=== PATIENT | female | born 1970 | race Caucasian/White ===

== ENCOUNTER 2018-09-21 14:40 | Outpatient (REF) | payer BC, SELFPAY ==
[2018-09-21 21:47] LABS: Cholesterol 185 mg/dL (50-200); HDL Cholesterol 61 mg/dL (40-60); LDL CHOLESTEROL 102 mg/dL (<100); Triglyceride 141 mg/dL (30-150)
== END 2018-09-21 15:00 ==
LOC: NCHCN 14:40
PROVIDERS: PCP Nurse Practitioner Family; Visit Provider Registered Nurse
DX: Z00.00 Encounter for general adult medical examination without abnormal findings (principal); Z13.220 Encounter for screening for lipoid disorders
CPT/HCPCS: 80061; 83721

== ENCOUNTER 2021-03-12 01:32 | Outpatient (CLI) | payer BC, SELFPAY ==
--- NOTE | 2021-03-12 | DI.MAMMO_ITS ---
Exam(s) MAMMO SCREENING EXAM: MAMMO SCREENING CLINICAL HISTORY: SCREENING,Z12.31,YEARLY. TECHNIQUE: Bilateral full field digital CC and MLO mammographic images were obtained with 3D tomosyn thesis and utilizing computer aided detection (CAD). COMPARISON: Prior mammograms performed in 2012. There been no interval mammograms. FINDINGS: The fibroglandular tissue pattern is moderately dense, this decreasing the sensitivity mammogram for finding hidden underlying lesions. There are no new spiculated masses nor malignant appearing microcalcification groups. There is no significant architectural distortion nor skin thickening-retraction. IMPRESSION: Dense bilateral fibroglandular tissue. No obvious radiographic evidence of malignancy nor significan t change compared to 2012 BI-RADS Category 1 - Negative Breast Density - Category C - Heterogeneously dense Breast density Category C or D implies that the patient has dense breast tissue. Dense breast tissue can make it harder to find cancer on a mammogram. Dense breast tissue is also associated with an incr eased risk of breast cancer. This information about the result of the mammogram report was provided to the patient to raise their awareness. Use this report when you speak with the patient about their risks for breast cancer, which includes their family history. At that time, you may recommend additional screening tests (Ultrasoun d or MRI) as these tests may add significant information. A negative radiographic report should not delay biopsy if a dominant or clinically suspicious mass is present. Up to ten percent of cancers are not identified on mammography. A negative report may reinforce clinical impression. Adenosis and dense breasts may obscure an underlying neoplasm. False positive reports average 6 to 10%. Patient will receive a letter notifying them of these results.
== END 2021-03-12 01:52 ==
PROVIDERS: PCP Nurse Practitioner Family; Visit Provider Registered Nurse
DX: Z12.31 Encounter for screening mammogram for malignant neoplasm of breast (principal)
CPT/HCPCS: 77063; 77067

== ENCOUNTER 2021-04-30 12:29 | Outpatient (REF) | payer BC, SELFPAY ==
--- NOTE | 2021-04-30 10:45 | PAPFT_PTH ---
PATIENT: Nicky Westfall LOC: [facility]#:[id number] AGE/SX: 50/F ROOM: RE04/30/[address]: Charity Chew : 1970 BED: DIS: 04/30/2021 SPEC #: [id number] RECD: 05/01/21 13:09 STATUS: MSITA GIL #: [id number] CORNELIUS: 04/30/21 10:[address]: Charity Chew DEPT: [facility] Cytology RECD BY: Daria Springer ENTERED: 05/01/21 13:09 SP TYPE: PAPFT OTHR DR: Jennfier Jerez Tissues: 1 - CX/ENDOCX FOR PAP SMEARS Procedures: PAP THIN PREP/UVM Screening HPV DNA PROBE Comments: [id number]
[2021-05-01 22:21] LABS: Calculated LDL 112 mg/dL (<100); Cholesterol 205 mg/dL (<200); HDL Cholesterol 65 mg/dL (40-60); Triglyceride 144 mg/dL (<150)
[2021-05-04 10:23] LABS: Hepatitis C Ab w Rflx HCV PCR Negative (Negative)
[2021-05-04 12:13] LABS: Lyme Ab w Rflx to Lyme Confirm Negative (Negative)
[2021-05-04 16:33] LABS: Spotted Fever Group Ab IgG <1:64 (<1:64); Spotted Fever Group Ab IgM <1:64 (<1:64)
[2021-05-04 19:11] LABS: Anaplasma phagocytophilum Negative (Negative); B. miyamotoi PCR Negative (Negative); Babesia divergens/MO-1 Negative (Negative); Babesia duncani Negative (Negative); Babesia microti Negative (Negative); Ehrlichia chaffeensis Negative (Negative); Ehrlichia ewingii/canis Negative (Negative); Ehrlichia muris eauclairensis Negative (Negative)
== END 2021-04-30 12:30 | disposition home or self-care (01) ==
LOC: NCHCN 12:29
PROVIDERS: PCP Nurse Practitioner Family; Visit Provider Registered Nurse
DX: Z00.00 Encounter for general adult medical examination without abnormal findings (principal); Z12.4 Encounter for screening for malignant neoplasm of cervix; Z11.51 Encounter for screening for human papillomavirus (HPV); Z13.220 Encounter for screening for lipoid disorders; W57.XXXA Bitten or stung by nonvenomous insect and other nonvenomous arthropods, initial encounter; T14.8XXA Other injury of unspecified body region, initial encounter; Z11.59 Encounter for screening for other viral diseases
CPT/HCPCS: 80061; 86803; 87798; 88142; 86618; 86757; 87624

== ENCOUNTER 2021-08-05 02:05 | Outpatient (CLI) | payer BC, SELFPAY ==
[2021-08-05 10:22] LABS: Source Nasal/Nares
[2021-08-05 13:53] LABS: COVID-19 PCR Negative (Negative)
== END 2021-08-05 02:06 | disposition home or self-care (01) ==
LOC: LBO 02:05
PROVIDERS: PCP Registered Nurse; Visit Provider Surgery
DX: Z20.822 Contact with and (suspected) exposure to COVID-19 (principal); Z01.818 Encounter for other preprocedural examination
CPT/HCPCS: 87635

== ENCOUNTER 2021-08-07 12:55 | Day surgery (SDC) | payer BC, SELFPAY ==
--- NOTE | 2021-08-06 15:56 | W.COLOREPORT ---
Colonoscopy Report Date of procedure: 08/07/21 Pre-op diagnosis general: CRC screen Post-op diagnosis procedure note: other (polyps and severe diverticular dx) Surgeon: Doris Kirk Anesthesia Type: General:No Airway Estimated blood loss (mL): 1 Pathology: other Complications: None Disposition: same day Prep: Miralax/Dulcolax Retraction Time: 10 mins Procedure Description: After informed consent was obtained the patient was taken to the procedure room and placed in a left decubitous position. Monitors were applied and a time out was done. The patients name, date of , procedure, allergies to medications and metal in their body was reviewed. The patient was then sedated. Once sedated and comfortable a rectal exam was done. External exam was normal. Internal exam revealed a normal sphincter tone and no palpable masses. The scope was then introduced and retrofelexed. No internal hemorrhoids were identified. The scope was then advanced to the cecum w/out difficulty. The TI and appendiceal orifice were identified. The prep was adequate. She does have stool coating the hampton of the right colon. This is extensively lavaged with 2 L of fluid. However lesions less than 5 mm may have been missed.. The scope was then slowly retracted over 10 minutes back into the rectum. Polyps were removed at 30cm w/ a hot snare. All specimens are retrieved and no bleeding is noted. she has severe diverticular disease confined to the sigmoid colon. She has a significant number of large pockets. There is no signs of active bleeding or infection. The colon is very tortuous and has poor tone. Upon completion, the scope was removed and the patient was woken up and taken back to Same day surgery in stable condition. The patient tolerated the procedure well and there were no immediate complications. Follow up: The patient should follow up in 3-5 years, path pd; unless they develop changes in bowel habits or other new gastrointestinal complaints.
--- NOTE | 2021-08-06 15:57 | PDOC.DSDIS_ITS ---
Discharge Plan Disposition Patient Disposition: HOME Condition: Good Discharge Details Reason For Visit: colo scope Attending Provider: Doris Kirk Primary Care Provider: Charity Chew Discharge Instructions Additional Instructions: DSU Colonoscopy Post- Op Instructions Instructions for Everyone who is given Anesthesia: For your safety, please do the following for the next twenty-four (24) hours: *Do Not operate a motor vehicle (car, truck, motorcycle, etc.) *Do Not drink alcoholic beverages or use any recreational drugs for the first 24 hours or while taking pain medications. The medications in your body may have a reaction that can be dangerous. *Do Not make any important decisions or sign any important papers. Findings: severe diverticular Dx polyp -use fiber supplement BID Follow up: repeat colonscopy in 3-5 yrs. 1. No lifting over 20 pounds or strenuous activity for the first 24 hours after your procedure. After 24 hours there are no restrictions on your activity but you may feel fatigued for a few days. 2. After you arrive home you may have a light meal and return to your normal diet as you can tolerate it without feeling sick to your stomach. 3. You may have a bloated, gaseous feeling in your belly (abdomen) after a colonoscopy. Passing gas and belching will help. Walking or lying down on your left side with your knees flexed may relieve the discomfort. Call the office at [phone] (Office) or [phone] (Hospital) right away if you notice any of the following: a.Vomiting of blood or ?coffee ground stools?. b.Rectal bleeding 1Tbsp, blood clots or continuous bleeding. c.Severe belly (abdominal) pain. d.A hard distended belly (abdomen) and an inability to pass gas. 4. Please don?t expect to have a normal BM (bowel movement) for 2-3 days after your procedure. 5. If there are questions regarding the findings of your procedure, please contact your doctor 6. If you are unable to contact your doctor with a problem, contact the hospital at [phone]. 7. Continue all your regular medications unless directed otherwise. I understand the above instructions and have no questions. Signature of Patient or Adult Escort Name of Responsible Adult Escort Signature of Nurse Date/Time Activity:: see above Diet:: see above Discharge Orders Discharge Orders: Discharge Order (Routine); Ordered 08/06/21 Ordered By: Doris Kirk DS: Diagnosis Discharge Diagnosis (1) Diverticula of colon: Status: Acute (2) Adenomatous polyp of sigmoid colon: Status: Acute (3) Chronic constipation: Status: Acute
[2021-08-07 13:18] VITALS: BP 142/78; PULSE 71; RESP 16; TEMP 36; O2SAT 16
--- NOTE | 2021-08-07 13:26 | W.ANESPRE ---
General Info Date of Service Date Performed: 08/07/21 Height: 5 ft 2 in Weight: 61.7 kg Body Mass Index (BMI): 24.8 Surgical Procedure: Operation Date: 08/07/21 13:05 Proposed Procedures Side Surgeon maxwell Kirk, DO Meds Allergies and Home Medications Allergies Allergy/AdvReac Type Severity Reaction Status Date / Time No Known Allergies Allergy Verified 08/07/21 13:16 Current Visit Medications: Current Medications Generic Name Dose Route Start Last Admin Trade Name Freq PRN Reason Stop Dose Admin Hyoscyamine Sulfate 0.125 mg 08/06/21 15:55 Hyoscyamine 0.125 Mg Sl/Oral/Chew SL DIRECTED PRN Ringer's Solution 1,000 mls @ 80 mls/hr 08/07/21 06:00 IV 09/05/21 23:59 INFUSION NATACHA IV Miscellaneous Supplies 1 each 08/07/21 06:00 Iv Access IV 09/05/21 23:59 DIRECTED NATACHA Ondansetron HCl 4 mg 08/06/21 15:55 Ondansetron 4 Mg/2 Ml Vial IVP Q4H PRN PRN Nausea / Vomiting Sodium Chloride 0 ml 08/07/21 06:00 Normal Saline Flush 10 Ml Syr IV 09/05/21 23:59 PRN PRN Sodium Chloride 0 ml 08/07/21 06:00 Normal Saline 10 Ml Vial IJ 09/05/21 23:59 DIRECTED PRN Sterile Water 0 ml 08/07/21 06:00 Water,Injection,Sterile 10 Ml Vial IJ 09/05/21 23:59 DIRECTED PRN PFSH Active Problems Active Problems: Problem Status Onset Code Screening for colon cancer Z12.11 Medical History Medical History Dysmenorrhea Skin lesion Tobacco Smoking/Tobacco Use Status: Former Tobacco Use Alcohol Alcohol Intake: current Alcohol intake frequency: a few times a week Alcohol type: beer and wine Substance Use Substance use type: does not use Vital Signs and Lab Results Vital Signs Most Recent Vital Signs in EMR: Most Recent Vital Signs Temp Pulse Resp BP Pulse Ox 36.0 C L 71 16 142/78 H 16 L 08/07/21 13:18 08/07/21 13:18 08/07/21 13:18 08/07/21 13:18 08/07/21 13:18 Lab Results Blood Type / Crossmatch: No Data to Display Complete Blood Count: No Data to Display Complete Metabolic Panel: No Data to Display Liver Function Panel: No Data to Display Coagulation Panel: No Data to Display Cardiac Panel: No Data to Display Arterial Blood Gas: No Data to Display Venous Blood Gas: No Data to Display Pancreas Panel: No Data to Display Thyroid Panel: No Data to Display Infectious Disease: Coronavirus (COVID-19)(PCR) Negative (Negative) 08/05/21 08:42 08/05/21 Coronavirus 2019 Source Nasal/Nares 08/05/21 08:42 08/05/21 Blood Cultures: No Data to Display Toxicology Panel: No Data to Display Panel: No Data to Display Anesthesia Assessment and Plan Anesthesia History Personal History: No History of General Anesthesia Family History: No Family History of Anesthesia Complications Exercise Tolerance Exercise Tolerance: Metabolic Equivalents>4 Pertinent Negatives Pertinent Negatives: No Symptoms of GERD, No Major Cardiovascular Symptoms or Complaints, No Major Pulmonary Symptoms or Complaints and No History of CVA/TIA Cardiac & Pulmonary Exam Cardiac Exam: Normal S1/S2 Heart Sounds Pulmonary Exam: Clear Bilateral Breath Sounds Airway Exam Known Difficult Airway: No Mallampati Class: 2 Mouth Opening: Normal (> 3cm) Thyromental Distance: Greater than 3 cm Neck Range of Motion: Full ROM Neck Circumference: Normal Teeth Condition: Normal Dentition ASA Classification ASA Score: ASA 2 Emergency Case?: No NPO Status NPO Status: NPO Clears >2 hours, Solids >8 hours Status Status: Not Relevant due to Medical History Anesthesia Plan Resuscitation Status: Full Code Anesthesia Technique: General Anesthesia Airway Planned: Natural Airway Monitors Used: Standard Monitors
[2021-08-07 13:28] VITALS: BMI 24.8
[2021-08-07] MEDS: Lactated Ringers 1,000 ML 80 ML IV (13:33)
--- NOTE | 2021-08-07 14:11 | BOWEL_PTH ---
PATIENT: Nicky Westfall LOC: [facility] U#:[id number] AGE/SX: 50/F ROOM: RE08/07/[address]: Doris Kirk : 1970 BED: DIS: 08/07/2021 SPEC #: [id number] RECD: 08/07/21 16:38 STATUS: SMITA REQ #: [id number] CORNELIUS: 08/07/21 14:[address]: Doris Kirk DEPT: Surgical Specimen RECD BY: Daria Springer ENTERED: 08/07/21 16:39 SP TYPE: Bowel OTHR DR: Charity Chew Tissues: 1 - BIOPSY BOWEL Procedures: GROSS AND MICRO LEVEL 4 Comments: [id number]
[2021-08-07 14:20] VITALS: BP 124/71; PULSE 64; RESP 16; TEMP 36.7; O2SAT 100
--- NOTE | 2021-08-07 14:35 | W.ANESPOSTOP ---
Postoperative Evaluation Date, Time and Location Date Performed: 08/07/21 Time Performed: 14:28 Patient Location: Day Surgery Unit Vital Signs Most Recent Imported Vital Signs: Most Recent Vital Signs Temp Pulse Resp BP Pulse Ox 36.7 C 64 16 124/71 100 08/07/21 14:20 08/07/21 14:20 08/07/21 14:20 08/07/21 14:20 08/07/21 14:20 Pain Score Most Recent Pain Score: Most Recent Pain Score Pain Level 0 08/07/21 14:20 Assessment Mental Status: Awake (Alert & Oriented to Patient Baseline) Airway and Respiratory Function: Patent airway with normal (patient baseline) respiratory exam Cardiovascular Function: Hemodynamically Stable Hydration Status: Adequately Hydrated Nausea & Vomiting: No Nausea or Vomiting Pain: Pt. Denies Any Pain Peripheral Nerve Block: Patient did not receive a nerve block
[2021-08-07 14:49] VITALS: BP 114/82; PULSE 68; RESP 16; TEMP 36.3; O2SAT 99
== END 2021-08-07 15:30 | disposition home or self-care (01) ==
PROVIDERS: PCP Registered Nurse; Visit Provider Surgery
PROC: 0DJD8ZZ Inspection of Lower Intestinal Tract, Via Natural or Artificial Opening Endoscopic (ICD-10-PCS; CPT 45378; principal; 2021-08-07 13:00)
DX: Z12.11 Encounter for screening for malignant neoplasm of colon (principal); K59.09 Other constipation; K57.30 Diverticulosis of large intestine without perforation or abscess without bleeding; D12.5 Benign neoplasm of sigmoid colon
CPT/HCPCS: 45385; 88305; J2001; J2405

== ENCOUNTER 2022-02-10 19:31 | Outpatient (REF) | payer BC, SELFPAY ==
[2022-02-11 15:11] LABS: COVID-19 RT-PCR UVMMC Result Negative (Negative)
== END 2022-02-10 19:32 | disposition home or self-care (01) ==
LOC: NCHCN 19:31
PROVIDERS: PCP Registered Nurse; Visit Provider Nurse Practitioner Family
DX: J02.9 Acute pharyngitis, unspecified (principal); Z20.822 Contact with and (suspected) exposure to COVID-19
CPT/HCPCS: U0003

== ENCOUNTER 2022-11-01 10:44 | Outpatient (REF) | payer BC, SELFPAY | END 2022-11-01 10:45 | disposition home or self-care (01) | LOC: NCHCN 10:44 | PROVIDERS: PCP Registered Nurse; Visit Provider Nurse Practitioner Family | DX: R30.0 Dysuria (principal) | CPT/HCPCS: 87077; 87086; 87186 ==

== ENCOUNTER 2024-07-02 19:34 | Outpatient (REF) | payer BC, SELFPAY ==
[2024-07-02 15:48] LABS: HCT 39.3 % (36.0-46.0); HGB 13.4 g/dL (11.2-15.7); MCH 31.3 pg (27.0-33.0); MCHC 34.1 % (32.0-36.0); MCV 92 fL (80-95); MPV 11.2 fL (8.0-11.0); Platelet Count 243 10^3/uL (130-400); RBC 4.28 10^6/uL (3.93-5.22); RDW-SD 40.8 fL; WBC 6.84 10^3/uL (4.4-10.8)
[2024-07-02 16:14] LABS: ALT 32 U/L (14-59); AST 26 U/L (15-37); Albumin 4.1 g/dL (3.4-5.0); Alkaline Phosphatase 67 U/L (46-116); Anion Gap 9.1 mmol/L (3-11); BUN 16 mg/dL (7-18); Bilirubin, Total 0.45 mg/dL (0.2-1.0); CO2 27.9 mmol/L (21.0-32.0); CREATININE 0.7 mg/dL (0.55-1.02); Calcium 9.3 mg/dL (8.5-10.1); Calculated LDL 116 mg/dL (<100); Chloride 103 mmol/L (98-107); Cholesterol 214 mg/dL (<200); Estimated GFR 102.07 (mL/min/1.73m2); Glucose 92 mg/dL (74-106); HDL Cholesterol 77 mg/dL (40-60); Potassium 4.2 mmol/L (3.5-5.1); Sodium 140 mmol/L (136-145); TSH (W/Ref FT4) 1.57 uIU/mL (0.36-3.74); Total Protein 7.4 g/dL (6.4-8.2); Triglyceride 105 mg/dL (<150)
--- OUTSIDE RECORDS SUMMARY | 2024-07-02 19:42 | XMS_ITS ---
Author Organization Unknown Address [address] [place] [address] [phone] Phone Care Team Providers Care Groundwater Consultant Name Role Phone PETER Garza Attending Unavailable MUSTAPHA Cordova Primary Unavailable Social History Type Status Start Date End Date Code Code Syst em Smoking History Unknown if ever smoked [id number] Sex Female Hospital Discharge Instructions Should you have any questions prior to discharge, please contact a member of your healthcare team. If you have left the hospital and have any questions, please contact your primary care physician. Reason For Referral No Data Found Allergies and Adverse Reactions Allergy Substance Reaction Severity Start Date Concern Status Co de Code System No Known Drug Allergies Active [id number] SNOMED-CT Plan of Treatment TRAVEL 08/12/2021 Encounters Encounter Diagnosis Start Date Code Code Sys tem Radial styloid tenosynovitis 10/03/2023 71342192 SNOMED-CT Personal Care Team Section Performer Name Performer Role Active Date Inactive Da te
--- OUTSIDE RECORDS SUMMARY | 2024-07-02 19:42 | XMS_ITS ---
Author Organization Unknown Address [address] [place] [address] [phone] Phone Care Team Providers Care Manager Community Relations Name Role Phone SHOBHA Cobian Attending Unavailable MUSTAPHA Cordova Primary Unavailable Social History Type Status Start Date End Date Code Code Syst em Smoking History Unknown if ever smoked [address] Sex Female Hospital Discharge Instructions [...] Code System No Known Drug Allergies Active [id number] SNOMED-CT Plan of Treatment TRAVEL 08/12/2021 Encounters Encounter Diagnosis Start Date Code Code Sys tem Tenosynovitis of right radial styloid 09/05/2023 160 [id number] SNOMED-CT Personal Care Team Section Performer Name Performer Role Active Date Inactive Da josiah
--- OUTSIDE RECORDS SUMMARY | 2024-07-02 19:42 | XMS_ITS ---
Author Organization Unknown Address [address] [place] [address] [phone] Phone Care Team Providers Care Occupational Safety And Health Manager Name Role Phone SHOBHA Cobian Attending Unavailable MUSTAPHA Cordova Primary Unavailable Results XR WRIST 3V RT* - Completed: 04/11/2023 14:31 LOINC: [facility] [place], [place] [address] [employer]IE[employer]ETING OFFICER REPORT Patient Name: FREDI HAAS MRN: Sex: : Age: [id number] F 1970 52 Account: Accession: Admit: StayType: [id number] 04/11/2023 CLINIC Ordered: Order ID: Submitted: Ordering Provider: 04/11/2023 14:23 [id number] [facility] NICK YEAGER Completed: Technologist: Resulted: 04/11/2023 14:31 [facility] 04/11/2023 14:46 Study Description: XR WRIST 3V RT Study Reason: RT WRIST GANGLION CYST Image count: 3 Views Comparison: None FINDINGS: Bones: No evidence of fracture. Joints:No dislocation or subluxation. Minimal degenerative changes. Soft tissues:Mild swelling. IMPRESSION: Mild soft tissue swelling. Report Digitally Signed by Mariela Caldwell on 04/11/2023 02:46 PM EDT Social History Type Status Start Date End Date Code Code Syst em Smoking History Unknown if ever smoked [id number] Sex Female Hospital Discharge Instructions [...] Code System No Known Drug Allergies Active 553960184 SNOMED-CT Plan of Treatment TRAVEL 08/12/2021 Encounters Encounter Diagnosis Start Date Code Code Sys tem Tenosynovitis of right radial styloid 04/11/2023 160 [id number] SNOMED-CT Personal Care Team Section Performer Name Performer Role Active Date Inactive Da josiah
--- OUTSIDE RECORDS SUMMARY | 2024-07-02 19:43 | XMS_ITS | Data Portability ---
Author Organization [facility] Address [address] [place] [address] Care Team Providers Care Hazardous Waste Remover Name Role Phone GAMALIEL RENDON Dentist [facility] Apiarist Assessment No assessment recorded. Plan of Treatment Reminders Order Date Submit Date Provider Last Modified By Organization Details Last Modified Time Details Appointments Annual Wellness Exam 40 2023 10:00A M Not available Not available Not available Lab lipid panel, serum 2023 024 [facility] (Registration ), [address] [place] [address] [place], [address], 07/02/2024 12:40:27 CBC 2023 024 [facility] (Registration ), [address] [place] [address] [place], [address], 07/02/2024 15:56:47 CMP, serum or plasma 2023 024 [facility] (Registration ), [address] [place] [address] [place], [address], 07/02/2024 16:16:50 TSH, serum, reflex free T4 2023 024 [email or web address] 1 [facility] (Registration ), [address] [place] [address] [place], [address], 07/02/2024 12:24:19 lipid panel, blood 2023 024 [email or web address] 1 [facility] (Registration ), [address] [place] [address] [place] [facility] [place], [address], 07/02/2024 12:24:19 Referral sleep medicine [facility] 2023 024 [facility] [address] [place] [address] [address], [place], [address], 07/02/2024 15:45:23 dermatolo gist referral 2023 024 [facility] [address], [address], [place], [address], 07/02/2024 14:45:27 Procedures None recorded. Surgeries None recorded. Imaging MAMMO, screening , bilateral 2023 [facility] (Radiology), [address] [place] [address] [place], [address], 07/02/2024 12:09:09 Medication Orders None recorded. Patient TargetsNo targets recorded. Patient Instructions Encounter Date Encounter Id Patient Instructions Last Modified By Organization Details Last Modified Time 07/02/2024 [id number] Walter Barker, NUMERICAL CONTROL MACHINE MACHINIST student, was involved in the care of this patient. I participated fully in this visit with the above student, and I agree with the history, physical exam, and assessment and plan as documented. [email or web address] Not available 07/02/2024 16:26:22 Reason for Referral Tobacco Packer Referral for S kin lesion Referring Physician: [facility], Encounter Date: 07/02/2024 Sleep Medicine Referral for Fatigue Referring Physician: [facility], Encounter Date: 07/02/2024 Results Created Date Observation Date Name Description Value Unit Range Abnormal Flag Note LastModifiedBy Organization Detail LastModifiedTime 07/02/20 24 07/02/2024 COMPL ETE BLOOD COUNT NO DIFF WBC 6.84 10_3/ uL 4.4-10 .8 normal Not Available [address] [place], [address] 07/02/2024 15:56:47 07/02/20 24 07/02/2024 COMPL ETE BLOOD COUNT NO DIFF RBC 4.28 10_6/ uL 3.93-5 .22 normal Not Available [address] [place], [address] 07/02/2024 15:56:47 07/02/20 24 07/02/2024 COMPL ETE BLOOD COUNT NO DIFF HGB 13.4 g/dL 11.2-1 5.7 normal Not Available [address] [place], [address] 07/02/2024 15:56:47 07/02/20 24 07/02/2024 COMPL ETE BLOOD COUNT NO DIFF HCT 39.3 % 36.0-4 6.0 normal Not Available [address] [place], [address] 07/02/2024 15:56:47 07/02/20 24 07/02/2024 COMPL ETE BLOOD COUNT NO DIFF MCV 92 fL 80-95 normal Not Available [address] [place], [address] 07/02/2024 15:56:47 07/02/20 24 07/02/2024 COMPL ETE BLOOD COUNT NO DIFF MCH 31.3 pg 27.0-3 3.0 normal Not Available [address] [place], [address] 07/02/2024 15:56:47 07/02/20 24 07/02/2024 COMPL ETE BLOOD COUNT NO DIFF MCHC 34.1 % 32.0-3 6.0 normal Not Available [address] [place], [address] 07/02/2024 15:56:47 07/02/20 24 07/02/2024 COMPL ETE BLOOD COUNT NO DIFF RDW 12.0 % 11.7-1 4.6 normal Not Available [address] [place], [address] 07/02/2024 15:56:47 07/02/20 24 07/02/2024 COMPL ETE BLOOD COUNT NO DIFF platelet count 243 10_3/ uL 130-40 0 normal Not Available [address] [place], [address] 07/02/2024 15:56:47 07/02/20 24 07/02/2024 COMPL ETE BLOOD COUNT NO DIFF MPV 11.2 fL 8.0-11 .0 high Not Available [address] [place], [address] 07/02/2024 15:56:47 07/02/20 24 07/02/2024 COMPR EHENS RACHEL METAB OLIC PANEL calcium 9.3 mg/dL 8.5-10 .1 normal Not Available [address] [place], [address] 07/02/2024 16:16:50 07/02/20 24 07/02/2024 COMPR EHENS RACHEL METAB OLIC PANEL glucose 92 mg/dL 74-106 normal Not Available Mg [address] [place], [address] 07/02/2024 16:16:50 07/02/20 24 07/02/2024 COMPR EHENS RACHEL METAB OLIC PANEL BUN 16 mg/dL 7-18 normal Not Available Mg [address] [place], [address] 07/02/2024 16:16:50 07/02/20 24 07/02/2024 COMPR EHENS RACHEL METAB OLIC PANEL creatinine 0.7 mg/dL 0.55-1 .02 normal Not Available [address] [place], [address] 07/02/2024 16:16:50 07/02/20 24 07/02/2024 COMPR EHENS RACHEL METAB OLIC PANEL estimated GFR 102.07 mL/min /1.73M 2 The eGFR is calcu lated from a serum creat inine using the CKD-E PI 2020 equat ion. Other varia bles requi red for the equat ion are gende r and age; this equat ion does not inclu de a race coeff icien t. This equat ion has simil ar overa ll perfo rmanc e to previ ous equat ions excep t value s may diffe r, in parti cular , in patie nts with highe r value s of eGFR and young er-ag ed adult s. Not Available [address] [place], [address] 07/02/2024 16:16:50 07/02/20 24 07/02/2024 COMPR EHENS RACHEL METAB OLIC PANEL total protein 7.4 g/dL 6.4-8. 2 normal Not Available [address] [place], [address] 07/02/2024 16:16:50 07/02/20 24 07/02/2024 COMPR EHENS RACHEL METAB OLIC PANEL albumin 4.1 g/dL 3.4-5. 0 normal Not Available [address] [place], [address] 07/02/2024 16:16:50 07/02/20 24 07/02/2024 COMPR EHENS RACHEL METAB OLIC PANEL bilirubin, total 0.45 mg/dL 0.2-1. 0 normal Not Available [address] [place], [address] 07/02/2024 16:16:50 07/02/20 24 07/02/2024 COMPR EHENS RACHEL METAB OLIC PANEL alk phos 67 U/L 46-116 normal Not Available [address], [address] 07/02/2024 16:16:50 07/02/20 24 07/02/2024 COMPR EHENS RACHEL METAB OLIC PANEL sodium 140 mmol/ L 136-14 5 normal Not Available [address] [place], [address] 07/02/2024 16:16:50 07/02/20 24 07/02/2024 COMPR EHENS RACHEL METAB OLIC PANEL potassium 4.2 mmol/ L 3.5-5. 1 normal Not Available [address] [place], [address] 07/02/2024 16:16:50 07/02/20 24 07/02/2024 COMPR EHENS RACHEL METAB OLIC PANEL chloride 103 mmol/ L 98-107 normal Not Available [address] [place], [address] 07/02/2024 16:16:50 07/02/20 24 07/02/2024 COMPR EHENS RACHEL METAB OLIC PANEL CO2 27.9 mmol/ L 21.0-3 2.0 normal Not Available [address] [place], [address] 07/02/2024 16:16:50 07/02/20 24 07/02/2024 COMPR EHENS RACHEL METAB OLIC PANEL anion gap 9.1 mmol/ L 3-11 normal Not Available [address] [place], [address] 07/02/2024 16:16:50 07/02/20 24 07/02/2024 COMPR EHENS RACHEL METAB OLIC PANEL AST 26 U/L 15-37 normal Not Available [address] [place], [address] 07/02/2024 16:16:50 07/02/20 24 07/02/2024 COMPR EHENS RACHEL METAB OLIC PANEL ALT 32 U/L 14-59 normal Not Available [address] [place], [address] 07/02/2024 16:16:50 07/02/20 24 07/02/2024 LIPID 2 cholesterol 214 mg/dL <200 high Not Available [address] [place], [address] 07/02/2024 16:16:51 07/02/20 24 07/02/2024 LIPID 2 triglyceride 105 mg/dL <150 Not Available [address] [place], [address] 07/02/2024 16:16:51 07/02/20 24 07/02/2024 LIPID 2 HDL cholesterol 77 mg/dL 40-60 Not Available [address] [place], [address] 07/02/2024 16:16:51 07/02/20 24 07/02/2024 LIPID 2 calculated LDL 116 mg/dL <100 high Natio nal Angelina stero l Educa tion Progr am (NCEP -ATPI II) class ifica tions : Angelina stero l <200 mg/dL Vicky able Angelina stero l 200-2 39 mg/dL Borde rline High Angelina stero l >or=2 40 mg/dL High HDL <40 mg/dL Low HDL >or=6 0 mg/dL High LDL <100 mg/dL Optim al LDL 100-1 29 mg/dL Near Optim al/Ab ove Optim al LDL 130-1 59 mg/dL Borde rline High LDL 160-1 89 mg/dL High LDL >or=1 90 mg/dL Very High *The above refer ence range is for adult s 18 years or older . Not Available [address] [place], [address] 07/02/2024 16:16:51 07/02/20 24 07/02/2024 TSH (W/RE F FT4) TSH (w/ref FT4) 1.57 uIU/m L 0.36-3 .74 normal Not Available [address] [place], [address] 07/02/2024 16:16:51 07/02/20 24 04/11/2023 XR, wrist , 3 or more view No observ ation record ed. [email or web address] Not Available 07/02 04:36:44 07/02/20 24 09/14/2021 MAMMO , bertae elmer No observ ation record ed. [email or web address] Not Available 07/02 04:36:46 07/02/20 24 03/12/2021 MAMMO , scree elmer No observ ation record ed. [email or web address] Not Available 07/02 04:37:03 Result Notes None recorded. Problems Name Problem SNOMED Code Status Onset Date Resolution Date Notes Provider Name and Address Organization Details Recorded Time Adult health examinat ion Active 2006 Problem Code: Z00.00; Problem Code Type: ICD-10; Not Available [facility] 3 05:08:42 Disorder of skin and/or subcutan eous tissue 18767518 Active 201709/21/20 18 - Comments only - Charity davis IT ASSISTANT, NUMERICAL CONTROL MACHINE MACHINIST-BC - Barely discerni ble skin lesion on her right lower arm. Watchful waiting, if any scabbing , bleeding , increase in size, will treat with liquid nitrogen . She also has a macular lesion undernea th her left breast, it is unchange d for many years. If any changes to this lesion or if concerns would consider biopsy. Will continue to monitor at future visits. Problem Code: L98.9; Problem Code Type: ICD-10; Not Available [facility] 3 05:08:42 Screenin g mammogra phy Active 2017 Problem Code: Z12.31; Problem Code Type: ICD-10; Not Available [facility] 3 05:08:42 Screenin g for malignan t neoplasm of colon Completed 202008/07/2021 Problem Code: Z12.11; Problem Code Type: ICD-10; Not Available [facility] 3 05:08:42 Otitis externa 7331700 Active 2020 Problem Code: H60.90; Problem Code Type: ICD-10; Not Available [facility] 3 05:08:42 Insect bite Active 2020 Not Available [facility] 3 05:08:43 Acute pharyngi tis 742237197 Completed 202102/11/2022 Problem Code: J02.9; Problem Code Type: ICD-10; Not Available [facility] 3 05:08:43 Radial styloid tenosyno vitis 88526827 Active 2021 Problem Code: M65.4; Problem Code Type: ICD-10; Not Available [facility] 3 05:08:43 Dysuria 55371088 Completed 202211/07/2022 Problem Code: R30.0; Problem Code Type: ICD-10; Not Available [facility] 3 05:08:43 Increase d frequenc y of urinatio n 078584989 Completed 202211/06/2022 Problem Code: R35.0; Problem Code Type: ICD-10; Not Available [facility] 3 05:08:43 Seasonal allergy 458585520 Active 2023 Kwesi Barker null, [facility] 4 11:04:11 Divertic ulosis of colon 384108964 Active 2020 Kwesi Barker null, [facility] 4 11:04:14 Menopaus e Active 2021 Kwesi Barker null, [facility] 4 11:03:58 Fatigue 59666986 Active 2023 Kwesi Barker null, [facility] 4 11:04:31 Skin lesion 99282087 Active 2023 Kwesi Barker null, [facility] 4 11:04:59 Notes:*Problem Name: Dysmeno rrhea / ? Endometriosis *ICD-10 Codes: *Problem Status: active *Comments: *Note Date: 2008 Problem Notes None recorded. Procedures Surgical History None recorded. Imaging Results Imaging Date Name Status LastModified by [facility] Details LastModified Time 04/11/2023 XR, wrist, 3 or more view completed Information not available 07/02/2024 04:36:44 09/14/2021 MAMMO, screening completed Information not available 07/02/2024 04:36:46 03/12/2021 MAMMO, screening completed Information not available 07/02/2024 04:37:03 Procedure Notes None recorded. Medical Equipment None Reported. Allergies No known drug allergies Medications Name Sig Start Date Stop Date Status Note LastModified by Organization Details LastModified Time neomycin- polymyxin -hydrocor t 3.5 mg-10,000 unit/mL-1 % ear drops,vishal p Apply 4 drop into left ear four times a day 04/25 completed Not Available Not Available Not Available Augmentin 875 mg tablet 1 TAB twice daily 02/27 completed Not Available Not Available Not Available Bactrim DS 800 mg-160 mg tablet Take 1 tablet by mouth twice a day for 3 days for UTI 11/03 completed Not Available Not Available Not Available progester one for menstrua l discomfo rt 04/30 completed Naturopa th in [facility]. Not Available Not Available Not Available [employer] min-Public Relations Intern als 09/21 completed Not Available Not Available Not Available Vitals Date Recorded Body height Body mass index (BMI) Body weight Body temperature Oxygen saturation Oxygen saturation in Arterial blood by Pulse oximetry Heart rate Systolic blood pressure Diastolic blood pressure Provider Name and Address Organization Details Last Updated DateTime 157.48 cm 26 kg/m2 90803.8 4 g 97.5 [degF] 97 % 97 % 65 /min 114 mm[Hg] 68 mm[Hg] JONY TERRAZAS RN [facility] 10:17:39 Social History Question Answer Notes LastModified by Organizat ion Details LastModified Time Tobacco Smoking Status Never Smoker [facility] 07/02/2024 11:35:40 What Type Of Diet Are You Following? REGULAR Information n ot available 07/02/2024 Would You Say That, In General, Your Health Is Very Good Information not available 07/02/2024 How Often Does Anyone, Including Family, Physically Hurt You? Never Information not available 07/02/2024 How Often Does Anyone, Including Family, Insult Or Talk Down To You? Never Information no t available 07/02/2024 How Often Does Anyone, Including Family, Threaten You With Harm? Never Information not available 07/02/2024 How Often Does Anyone, Including Family, Scream Or Curse At You? Rarely Information not available 07/02/2024 Within The Past 12 Months, You Worried That Your Food Would Run Out Before You Got Money To Buy More. Never True Information n ot available 07/02/2024 Within The Past 12 Months, The Food You Bought Just Didn't Last And You Didn't Have Money To Get More. Never True Information n ot available 07/02/2024 How Hard Is It For You To Pay For The Very Basics Like Food, Housing, Medical Care, And Heating? Would You Say It Is: Not Hard At All Information not available 07/02/2024 In The Past 12 Months, Has Lack Of Reliable Transportation Kept You From Medical Appointments, Meetings, Work Or From Getting Things Needed For Daily Living? No Information not available 07/02/2024 What Is Your Housing Situation Today? I Have Housing. Information not available 07/02/2024 How Often In The Past Year Have You Used Marijuana (including Smoking, Vaping, Dabbing, Or Edibles)? 2-4 Times Per Month Information not available 07/02/2024 How Often In The Past Year Have You Used Prescription Medications That Were Not Prescribed To You? Never Information n ot available 07/02/2024 How Often In The Past Year Have You Taken Your Own Prescription Medication More Than The Way It Was Prescribed Or For Different Reasons Than Its Intended Purpose? Never Information no t available 07/02/2024 How Often In The Past Year Have You Used Other Drugs (for Example, Heroin, Cocaine, Meth, Salvia, Inhalants)? Never Information not available 07/02/2024 Have You Ever Used IV Drugs? No Information not available 07/02/2024 Date Of Most Recent SBINS 07/02/2024 Information not available 07/02/2024 What Was The Date Of Your Most Recent Tobacco Screening? 07/02/2024 Information not available 07/02/2024 What Types Of Sporting Activities Do You Participate In? Biking, Walking, Sailing Information not available 07/02/2024 Has Tobacco Cessation Counseling Been Provided? No Information not available 07/02/2024 Do You Have Any Dietary Restrictions? No Tries To Sugar Fast Information not available 07/02/2024 Do You Or Have You Ever Used Any Other Forms Of Tobacco Or Nicotine? No Information not available 07/02/2024 Sex: Female Functional Status Question Answer Note LastModified by Organization D etails LastModified Time What is your exercise level? Moderate Information not available 07/02/2024 Mental Status None recorded. Family History Nothing Reported Notes:*Problem: Mother: Malcolm e: alcohol inudced dementia/hepatic encephalopathy Father: alcoholic; chf and stent placement, 2014. Bladder, rectal fistula, colon ca?. Sisters: 2 : 1 sister has thyroid issues; 1 sister bipolar disorder, 2015; substance abuse.Brothers: None Children: None Family History of: Hypertension: Yes Hyperlipidemia: No Coronary heart disease: No Diabetes mellitus: Yes Breast cancer (grandmother and two maternal aunts): No Colorectal cancer: No Prostate cancer: Yes Alcoholism: Yes Mental illness: Yes Other: No PGM- alzheimers MGM with breast cancer. Medical History No medical history recorded. Gynecological HistoryNo gynecological history recorded. Obstetrics History GPAL:G 0 P 0 0 0 0 Immunizations Vaccine Type Date Status Provider Name and Address Organization Details Recorded Time zoster recombinant 07/02/2024 completed JESSICA HERNANDEZ MD [address], [place], [address], [facility] 07/02/2024 16:26:18 Td (adult), 2 Lf tetanus toxoid, preservative free, adsorbed 09/02/2022 completed Not Available [facility] 08/26/2023 06:29:31 Tdap 03/10/2012 completed Not Available [facility] 06:29:31 COVID-19, mRNA, LNP-S, PF, 30 mcg/0.3 mL dose 12/04/2020 completed Not Available [facility] 08/26/2023 06:29:31 COVID-19, mRNA, LNP-S, PF, 30 mcg/0.3 mL dose 12/25/2020 completed Not Available [facility] 08/26/2023 06:29:31 Hep B, unspecified formulation 03/10/2012 completed Not Available [facility] 08/26/2023 06:29:31 Hep B, unspecified formulation 05/16/2012 completed Not Available [facility] 08/26/2023 06:29:31 Hep B, unspecified formulation 09/12/2012 completed Not Available [facility] 08/26/2023 06:29:31 influenza, unspecified formulation 07/15/2020 completed Not Available [facility] 08/26/2023 06:29:31 influenza, unspecified formulation 08/05/2021 completed Not Available [facility] 08/26/2023 06:29:31 influenza, unspecified formulation 08/14/2019 completed Not Available [facility] 08/26/2023 06:29:32 Past Encounters Encounter ID Performer Location Encounter Start Date Encounter Closed Date Diagnosis/Indication Diagnosis SNOMED-CT Code Diagnosis ICD10 Code [id number] JESSICA HERNANDEZ MD [address] [address] 07/02/2024 09:55:35 07/02/2024 12:09:09 Screening for malignant neoplasm of breast 853325538 Z12.39 Skin lesion 11402453 L98 .9 Fatigue 28004672 R53.83 Adult heal th examination 329126662 Z00.00 Screening for cardiovascular system disease 106029614 Z13.6 Active or passive immunization 066337530 Z23 Hyperlipid emia screening 972326740 Z13.220 Diverticul osis of colon 137388809 K57.30 Health Concerns Section Related Observation LastModified by Organization Detai ls LastModified Time None Recorded Concern Status LastModified by Organization Details LastModified Time None Recorded Advance Directives Directive N: gave pt packet as she wan ts to update Payers Encounter Date Sequence Insurance Name Policy Number Policy Iglesias Covered Member ID Iglesias Member ID Guarantor Name 07/02/2024 1 [place] [facility]) Nicky Westfall [id number] Nicky Westfall Notes Date Note Type Note Provider Name and Address Organization Details Recorded Time 07/02/2024 text/html HPI Notes: Is he re as an annual: Weight gain. States had gained 8-10 pounds within the past year. Despite increase in activity level. Diet might has worsened. Cold intolerance. Intermittent fatigue. Reports three out of four days of the week. Tubular ademona. Colonoscopy last done 08-21-2021, to have completed every 5 years. Interested in other testing while within five year range. Menopause. Hot flashes. Last period was around 2021. Had previously had full work up for possible endometriosis. Trialled Depot shots, created significant yeast infections. Then saw a soil science teacher with good results. No longer see any providers for this. Skin lesions. Is concerned for multiple areas . Internal right and left above knee. Concerning for a new raised skin lesion to right interal wrists, promoximal to scarring. Left eye irritation. Uses lubricating drops, daily. Does relieve itchiness. Nose concerns. chronic blood nose. Feels that she has ulcerous lesion, open sore that is red. Scant bloody drainage. Consistently in left nare. JESSICA HERNANDEZ MD [address], [place], [address], [facility]. 07/02/2024 16:26:25 OBGyn Episode No OBEpisode recorded.
--- OUTSIDE RECORDS SUMMARY | 2024-07-02 19:43 | XMS_ITS | Continuity of Care Document ---
Author Organization [facility] Address [address] [place] [address] Care Team Providers Care Machine Engineer Name Role Phone GAMALIEL RENDON Dentist [facility] Classified Advertising Manager Assessment No assessment recorded. Plan of Treatment Reminders Order Date Submit Date Provider Last Modified By Organization Details Last Modified Time Details Appointments Annual Wellness Exam 40 2023 10:00A M Not available Not available Not available Lab lipid panel, serum 2023 024 ATHENAFAX [facility] (Registration ), [address] [place] [address] [place], [address], 07/02/2024 12:40:27 CBC 2023 024 [facility] (Registration ), [address] [place] [address] [place], [address], 07/02/2024 15:56:47 CMP, serum or plasma 2023 024 [facility] (Registration ), [address] [place] [address] [place], [address], 07/02/2024 16:16:50 TSH, serum, reflex free T4 2023 024 [email or web address] 1 [facility] (Registration ), [address] [place] [address] [place], [address], 07/02/2024 12:24:19 lipid panel, blood 2023 024 [email or web address] 1 [facility] (Registration ), [address] [place] [address] [place], [address], 07/02/2024 12:24:19 Referral sleep medicine [facility] 20[facility] 024 [facility] [address] [place] [address] [address], [place], [address], 07/02/2024 15:45:23 dermatolo gist referral [facility] [address], [place], [address], 07/02/2024 14:45:27 Procedures None recorded. Surgeries None recorded. Imaging MAMMO, screening , bilateral [email or web address] [facility] (Radiology), [address] [place] [address] [place] [facility] [place], [address], 07/02/2024 12:09:09 Medication Orders None recorded. Patient TargetsNo targets recorded. Patient Instructions Encounter Date Encounter Id Patient Instructions Last Modified By Organization Details Last Modified Time 07/02/2024 [id number] Walter Barker, ROUTING EQUIPMENT TENDER student, was involved in the care of this patient. I participated fully in this visit with the above student, and I agree with the history, physical exam, and assessment and plan as documented. [email or web address] Not available 07/02/2024 16:26:22 Reason for Referral Cell Pourer Referral for S kin lesion Referring Physician: Jessica Hernandez, Family Medicine, Encounter Date: 07/02/2024 Sleep Medicine Referral for Fatigue Referring Physician: Jessica Hernandez Family Medicine, Encounter Date: 07/02/2024 Results Created Date Observation Date Name Description Value Unit Range Abnormal Flag Note LastModifiedBy Organization Detail LastModifiedTime 07/02/20 24 04/11/2023 XR, wrist , 3 or more view No observ ation record ed. [email or web address] Not Available 07/02 04:36:44 07/02/20 24 09/14/2021 MAMMO gina No observ ation record ed. [email or web address] Not Available 07/02 04:36:46 07/02/20 24 03/12/2021 MAMMO gina No observ ation record ed. [email or web address] Not Available 07/02 04:37:03 Result Notes None recorded. Problems Name Problem SNOMED Code Status Onset Date Resolution Date Notes Provider Name and Address Organization Details Recorded Time Adult health examinat ion Active 2006 Problem Code: Z00.00; Problem Code Type: ICD-10; Not Available [facility] 3 05:08:42 Disorder of skin and/or subcutan eous tissue 98980524 Active 201709/21/20 18 - Comments only - Charity davis CLIENT RENEWAL SPECIALIST, ROUTING EQUIPMENT TENDER-BC - Barely discerni ble skin lesion on [...] L98.9; Problem Code Type: ICD-10; Not Available [facility] 3 05:08:42 Screenin g mammogra phy Active 2017 Problem Code: Z12.31; Problem Code Type: ICD-10; Not Available [facility] 3 05:08:42 Screenin g for malignan t neoplasm of colon Completed 202008/07/2021 Problem Code: Z12.11; Problem Code Type: ICD-10; Not Available [facility] 3 05:08:42 Otitis externa 1419332 Active 2020 Problem Code: H60.90; Problem Code Type: ICD-10; Not Available [facility] 3 05:08:42 Insect bite Active 2020 Not Available [facility] 3 05:08:43 Acute pharyngi tis 263174241 Completed 202102/11/2022 Problem Code: J02.9; Problem Code Type: ICD-10; Not Available [facility] 3 05:08:43 Radial styloid tenosyno vitis 62485670 Active 2021 Problem Code: M65.4; Problem Code Type: ICD-10; Not Available [facility] 3 05:08:43 Dysuria 41016958 Completed 202211/07/2022 Problem Code: R30.0; Problem Code Type: ICD-10; Not Available [facility] 3 05:08:43 Increase d frequenc y of urinatio n 776841866 Completed 202211/06/2022 Problem Code: R35.0; Problem Code Type: ICD-10; Not Available [facility] 3 05:08:43 Seasonal allergy 625004655 Active 2023 Kwesi Barker null, [facility] 4 11:04:11 Divertic ulosis of colon 594977159 Active 2020 Kwesi Barker null, [facility] 4 11:04:14 [place] e Active 2021 Kwesi Barker null, [facility] 4 11:03:58 Fatigue 25816525 Active 2023 Kwesi Barker null, [facility] 4 11:04:31 Skin lesion 88329043 Active 2023 Kwesi Barker null, [facility] 4 11:04:59 Notes:*Problem Name: Dysmeno rrhea / ? Endometriosis *ICD-10 Codes: *Problem Status: active *Comments: *Note Date: 2008 Problem Notes None recorded. Medical Equipment None Reported. [...] discomfo rt 04/30 completed [facility] [place]. Not Available Not Available Not Available [employer]ical Instrumentation Officer als 09/21 completed Not Available Not Available Not Available Vitals Date Recorded Body height Body mass index (BMI) Body weight Body temperature Oxygen saturation Oxygen saturation in Arterial blood by Pulse oximetry Heart rate Systolic blood pressure Diastolic blood pressure Provider Name and Address Organization Details Last Updated DateTime 157.48 cm 26 kg/m2 28397.8 4 g 97.5 [degF] 97 % 97 % 65 /min 114 mm[Hg] 68 mm[Hg] JONY TERRAZAS RN [facility] 10:17:39 Social History Question Answer Notes LastModified by Organizat ion Details LastModified Time Tobacco Smoking Status Never Smoker JONY TERRAZAS RN [facility], [facility] 07/02/2024 11:35:40 What Type Of Diet [...] recorded. Family History Nothing Reported Notes:*Problem: Mother: Aliv e: alcohol inudced dementia/hepatic encephalopathy Father: alcoholic; [...] completed JESSICA HERNANDEZ MD [address], [place], [address], [facility] 07/02/2024 16:26:18 Td (adult), 2 Lf tetanus toxoid, preservative free, adsorbed 09/02/2022 completed Not Available [facility] 08/26/2023 06:29:31 Tdap 03/10/2012 completed Not Available [facility] 06:29:31 COVID-19, mRNA, LNP-S, PF, 30 mcg/0.3 mL dose 12/04/2020 completed Not Available [facility] 08/26/2023 06:29:31 COVID-19, mRNA, LNP-S, PF, 30 mcg/0.3 mL dose 12/25/2020 completed Not Available [facility] 08/26/2023 06:29:31 Hep B, unspecified formulation 03/10/2012 completed Not Available [facility] 08/26/2023 06:29:31 Hep B, unspecified formulation 05/16/2012 completed Not Available [facility] 08/26/2023 06:29:31 Hep B, unspecified formulation 09/12/2012 completed [facility] 08/26/2023 06:29:31 influenza, unspecified formulation 07/15/2020 completed Not Available [facility] 08/26/2023 06:29:31 influenza, unspecified formulation 08/05/2021 completed Not Available [facility] 08/26/2023 06:29:31 influenza, unspecified formulation 08/14/2019 completed Not Available [facility] 08/26/2023 06:29:32 Past Encounters Encounter ID Performer Location Encounter Start Date Encounter Closed Date Diagnosis/Indication Diagnosis SNOMED-CT Code Diagnosis ICD10 Code [id number] JESSICA HERNANDEZ MD [address] [address] 07/02/2024 09:55:35 07/02/2024 12:09:09 Screening for malignant neoplasm of breast 110463885 Z12.39 Skin lesion 70444100 L98 .9 Fatigue 66026489 R53.83 Adult heal th examination 201515022 Z00.00 Screening for cardiovascular system disease 384333903 Z13.6 Active or passive immunization 477918665 Z23 Hyperlipid emia screening 147909456 Z13.220 Diverticul osis of colon 263100978 K57.30 Health Concerns Section Related Observation LastModified by Organization Detai ls LastModified Time None Recorded Concern Status LastModified by Organization Details LastModified Time None Recorded Payers Encounter Date Sequence Insurance Name Policy Number Policy Iglesias Covered Member ID Iglesias Member ID Guarantor Name 07/02/2024 1 [place] [employer] [place] ([facility]) Nicky Westfall [id number] Nicky Westfall Notes Date Note Type Note [...] created significant yeast infections. Then saw a nutrition specialist with good results. No longer see any [...] nare. JESSICA HERNANDEZ MD [address], [place], [address], [facility], [facility]. 07/02/2024 16:26:25 OBGyn Episode No OBEpisode recorded.
--- OUTSIDE RECORDS SUMMARY | 2024-07-02 19:43 | XMS_ITS ---
Author Organization Unknown Address [address] [place] [phone] Phone Care Team Providers Care Compliance Associate Name Role Phone PETER Garza Attending Unavailable Social History Type Status Start Date End Date Code Code Syst em Smoking History Unknown if ever smoked [address] Sex Female Hospital Discharge Instructions Should you have any questions prior to discharge, please contact a member of your healthcare team. If you have left the hospital and have any questions, please contact your primary care physician. Reason For Referral No Data Found Procedures Procedure Name Date Status Code Code Marcos otto Incision, Extensor Tendon Sheath, Wrist 10/25/2023 [place] [address] CPT Allergies and Adverse Reactions Allergy Substance Reaction Severity Start Date Concern Status Co de Code System No Known Drug Allergies Active 909364784 SNOMED-CT Plan of Treatment TRAVEL 08/12/2021 Encounters Encounter Diagnosis Start Date Code Code Sys tem Radial styloid tenosynovitis [de Quervain] 10/25/2023 SNOMED-CT Personal Care Team Section Performer Name Performer Role Active Date Inactive Da te
== END 2024-07-02 19:35 | disposition home or self-care (01) ==
LOC: NCHCN 19:34
PROVIDERS: PCP Registered Nurse; Visit Provider Family Medicine
DX: R53.83 Other fatigue (principal); Z13.6 Encounter for screening for cardiovascular disorders
CPT/HCPCS: 80053; 80061; 85027; 84443

== ENCOUNTER 2024-08-02 10:35 | Outpatient (REF) | payer BC, SELFPAY | END 2024-08-02 10:36 | disposition home or self-care (01) | LOC: NCHCN 10:35 | PROVIDERS: PCP Registered Nurse; Visit Provider Family Medicine | DX: R30.0 Dysuria (principal) | CPT/HCPCS: 87077; 87086; 87186 ==

== ENCOUNTER 2024-10-15 01:38 | Outpatient (CLI) | payer BC, SELFPAY ==
--- NOTE | 2024-10-15 | DI.MAMMO_ITS ---
Exam(s) MAMMO SCREENING EXAM: MAMMO SCREENING CLINICAL HISTORY: Screening, Z12.39. TECHNIQUE: Bilateral full field digital CC and MLO mammographic images were obtained with 3D tomosyn thesis and utilizing computer aided detection (CAD). COMPARISON: Prior mammograms were reviewed. Most recent mammogram was 2020. FINDINGS: Fibroglandular tissue pattern is again noted be moderately dense. There are no obvious new spiculated masses nor malignant appearing microcalcification groups. There is no significant architectural distortion nor skin thickening-retraction. IMPRESSION: No radiographic evidence of malignancy. BI-RADS Category 1 - Negative Breast Density - Category C - Heterogeneously dense Breast density Category C or D implies that the patient has dense breast tissue. Dense breast tissue can make it harder to find cancer on a mammogram. Dense breast tissue is also associated with an incr eased risk of breast cancer. This information about the result of the mammogram report was provided to the patient to raise their awareness. Use this report when you speak with the patient about their risks for breast cancer, which includes their family history. At that time, you may recommend additional screening tests (Ultrasoun d or MRI) as these tests may add significant information. A negative radiographic report should not delay biopsy if a dominant or clinically suspicious mass is present. Up to ten percent of cancers are not identified on mammography. A negative report may reinforce clinical impression. Adenosis and dense breasts may obscure an underlying neoplasm. False positive reports average 6 to 10%. Patient will receive a letter notifying them of these results.
== END 2024-10-15 01:58 ==
LOC: DI 01:38
PROVIDERS: PCP Registered Nurse; Visit Provider Family Medicine
DX: Z12.31 Encounter for screening mammogram for malignant neoplasm of breast (principal); R92.333 Mammographic heterogeneous density, bilateral breasts
CPT/HCPCS: 77063; 77067